=== PATIENT | female | born 1995 | race Caucasian/White ===

== ENCOUNTER 2018-03-02 09:02 | Day surgery (SDC) | payer BC ==
[2018-03-02] VITALS (9 sets, daily range): BP systolic 101–126; BP diastolic 66–86; PULSE 90–104; TEMP 97.5–98.8
[~2018-03-02] VITALS: Ht 160 cm; Wt 60.8 kg
[2018-03-02] MEDS ORDERED: LEVAQUIN 5500 MG/TA1 PO (09:57)
[2018-03-02] MEDS ORDERED: NORCO 325 MG-51 TAB PO (09:58)
[2018-03-02] MEDS ORDERED: FLOMAX 0.40.4 MG/CAP PO (09:58)
[2018-03-02] MEDS ORDERED: PYRIDIUM 100MG100 MG PO (09:59)
== END 2018-03-02 17:04 | disposition home or self-care (01) ==
LOC: SDCO 09:02 → SURG 13:52 → SDCO 17:04
DX: N20.1 Calculus of ureter (principal)
CPT/HCPCS: OP; J0360; J0690; J1100; J1170; J1885; J2175; J2270; J2405; J2704; J3010; J7120

== ENCOUNTER 2021-09-06 20:15 | Emergency (ER) | payer MEDICAID ==
[~2021-09-06] VITALS: Ht 162.6 cm; Wt 59.1 kg
[~2021-09-06 20:15] MED LIST: FLOMAX 0.40.4 MG/CAP PO; LEVAQUIN 5500 MG/TA1 PO; NORCO 325 MG-51 TAB PO; PYRIDIUM 100MG100 MG PO
[2021-09-06 20:20] VITALS: TEMP 97.5
[2021-09-06 20:45] LABS: BASO % 0.3 % (0.0-2.0); EOS # 0.1 K/mm3 (0.0-0.7); EOS % 1.8 % (0.0-4.0); GRAN # 3.8 K/mm3 (1.4-6.5); GRAN % 52.4 % (42.2-75.2); HEMATOCRIT 40.8 % (37.0-47.0); HEMOGLOBIN 13.9 g/dl (12.5-16.0); LYMPH # 2.7 K/mm3 (1.2-3.4); LYMPH % 36.9 % (20.0-51.0); MEAN CELL VOLUME 88 fl (80.0-100.0); MEAN CORPUSCULAR HEMOGLOBIN 30 pg (27-31); MEAN CORPUSCULAR HGB CONC 34 g/dl (33.0-37.0); MEAN PLATELET VOLUME 10.6 fl (7.4-10.4); MONO # 0.6 K/mm3 (0.1-0.6); MONO % 8.5 % (1.7-9.3); PLATELET COUNT 201 K/mm3 (130-400); RED BLOOD COUNT 4.65 M/mm3 (4.10-5.30); REDCELL DISTRIBUTION WIDTH-CV 12.5 % (11.5-14.5)
[2021-09-06 21:07] LABS: BILIRUBIN,TOTAL 0.7 mg/dL (0.2-1.2); CALCIUM 8.9 mg/dL (8.4-10.2); CREATININE, serum 0.8 mg/dL (0.57-1.11); POTASSIUM 3.6 mmol/L (3.5-4.5); TOTAL PROTEIN 7.7 gm/dL (6.2-8.1)
[2021-09-06] MEDS ORDERED: NALOXONE 1MG/1 MG/ML IJ (21:24)
[2021-09-06 23:51] LABS: TRICYCLIC ANTIDEPRESS URINE NEGATIVE
[2021-09-07 00:50] VITALS: BP 125/53; PULSE 81
--- NOTE | 2021-09-07 15:15 | NUR ---
Marketing And Public Relations Manager was consulted for patient who left ED. Patient had positive UDS for methamphetamines, amphetamines, benzos, and THC. Per consult, patient has a two year old child. CPS report made (intake#[id number]).
== END 2021-09-07 00:50 | disposition home or self-care (01) ==
LOC: EDBD 20:15 → COL.ER 20:15
PROVIDERS: Physician Assistant
DX: T40.2X1A Poisoning by other opioids, accidental (unintentional), initial encounter (principal); F11.10 Opioid abuse, uncomplicated
CPT/HCPCS: J2310; J7030

== ENCOUNTER → 2022-04-21 | Outpatient (CLI) | payer MEDICAID ==
[~2022-04-21] MED LIST changes: +NALOXONE 1MG/1 MG/ML IJ; +ZOFRAN 4MG T4 MG/TAB PO
--- NOTE | 2022-04-22 00:05 | NUR ---
0005- PT AMBULATORY TO LR4 FROM EMERGENGY DEPARTMENT, CHANGED INTO GOWN. 0015- NURSE TO BEDSIDE. DOPPLERED HEART TONES 165-169 WITH 2 EPISODES OF MOVEMENT NOTED. PT DENIES CONTRACTIONS, CRAMPING, LEAKING FLUID, OR VAGINAL BLEEDING. SHE REPORTS FEELING NORMAL MOVEMENT. PT STATES SHE IS JUST HERE BECAUSE SHE IS SO CONSTIPATED AND NEEDS HELP "POOPING." 0017- ED CHARGE NURSE NOTIFIED THAT PT NEEDS TO BE SEEN IN ED DUE TO NO OBSTETRIC COMPLAINTS. 0019- PT LEAVES UNIT AMBULATORY, ESCORTED TO ED BY STAFF.
== END ==
LOC: LDRO 23:36 → COL.ER 23:36 → EDSTATUS 23:45
DX: O99.619 Diseases of the digestive system complicating pregnancy, unspecified trimester (principal); Z3A.00 Weeks of gestation of pregnancy not specified

== ENCOUNTER 2022-04-22 00:25 | Emergency (ER) | payer MEDICAID ==
[~2022-04-22] VITALS: Ht 162.6 cm; Wt 63.6 kg
[~2022-04-22 00:25] MED LIST changes: -ZOFRAN 4MG T4 MG/TAB PO
[2022-04-22 00:30] VITALS: TEMP 98
[2022-04-22] MEDS ORDERED: ZOFRAN 4MG T4 MG/TAB PO (00:44)
[2022-04-22 00:53] VITALS: BP 119/78; PULSE 79
== END 2022-04-22 00:53 | disposition home or self-care (01) ==
LOC: COL.ER 00:25
DX: O99.612 Diseases of the digestive system complicating pregnancy, second trimester (principal); K59.00 Constipation, unspecified; Z3A.23 23 weeks gestation of pregnancy